=== PATIENT | female | born 1955 | race Caucasian/White ===

== ENCOUNTER 2017-01-24 17:09 | Emergency (ER) | payer OTHER ==
[~2017-01-24] VITALS: Ht 154.9 cm; Wt 79.9 kg
[2017-01-24 17:49] LABS: HEMATOCRIT 43.5 % (36.0-46.0); MCH 31.1 PG (29.0-34.0); MCHC 34.9 G/DL (30.0-36.0); MCV 89.1 FL (83-99); MEAN PLAT.VOLUME 10.1 uM^3 (9.5-12.4); PLATELET COUNT 263 K/uL (156-360); RBC DIS.WIDTH-CV 12.3 % (11.8-14.6); RBC DIS.WIDTH-SD 40.2 % (39-53); RED BLOOD COUNT 4.88 M/uL (3.80-5.20); WHITE BLOOD COUNT 10.3 K/uL (4.1-10.2)
[2017-01-24 17:58] LABS: CHLORIDE 108 mEq/L (99-109)
[2017-01-24 17:59] LABS: POTASSIUM 3.9 mEq/L (3.7-5.4); SODIUM 138 mEq/L (136-147)
[2017-01-24 18:01] LABS: GLUCOSE 103 mg/dL (70-99)
[2017-01-24 18:02] LABS: ANION GAP 7 MEQ/L (2-14)
[2017-01-24 18:03] LABS: TOTAL BILIRUBIN 0.7 mg/dL (0.0-1.0)
[2017-01-24 18:04] LABS: ALKALINE PHOSPHATASE 90 IU/L (3-129)
[2017-01-24 18:05] LABS: GFR ESTIMATE (CALCULATED) > 59 mL/min/
[2017-01-24 18:06] LABS: UREA NITROGEN (BUN) 15 mg/dL (9-23)
[2017-01-24 18:08] LABS: LIPASE 11 U/L (1.0-51.0)
[2017-01-24 18:26] LABS: ADD MIUA? YES; BILIRUBIN NEGATIVE; BLOOD SMALL; COLOR STRAW ((YELLOW)); GLUCOSE (STRIP) NEGATIVE; KETONES NEGATIVE; LEUKOCYTES NEGATIVE; NITRITE NEGATIVE; PROTEIN (STRIP) NEGATIVE; SPECIFIC GRAVITY 1.006 (1.000-1.030); UROBILINOGEN 0.2 MG/DL (0.2-1.0)
[2017-01-24 18:29] LABS: BACTERIA RARE /HPF; EPITHELIAL CELLS NONE SEEN /HPF; MUCUS NONE SEEN /LPF; RED BLOOD CELLS 0-5 /HPF (0-5); UCUL ADDED? NO; WHITE BLOOD CELLS 0-5 /HPF (0-5)
[2017-01-24] MEDS ORDERED: ZOFRAN ODT4 MG PO (21:17)
[2017-01-24] MEDS ORDERED: CIPRO500 MG PO (21:17)
[2017-01-24] MEDS ORDERED: FLAGYL500 MG PO (21:17)
[2017-01-24] MEDS ORDERED: PERCOCET 5/31 TABLET PO (21:17)
[2017-01-24 21:26] VITALS: BP 126/67
== END 2017-01-24 21:28 | disposition home or self-care (01) ==
LOC: EME 17:09
DX: K52.9 Noninfective gastroenteritis and colitis, unspecified (principal); Z79.82 Long term (current) use of aspirin; R91.8 Other nonspecific abnormal finding of lung field; F17.200 Nicotine dependence, unspecified, uncomplicated
CPT/HCPCS: 74177; 80053; 81003; 83690; 85027; 99281; 99285